=== PATIENT | female | born 1985 | race Asian ===

== ENCOUNTER 2017-04-24 04:36 | Observation (INO) | payer OTHER | END 2017-04-24 05:20 | disposition home or self-care (01) | LOC: FLD 04:36 | PROVIDERS: ADMIT Obstetrics & Gynecology; ATTEND Obstetrics & Gynecology | DX: O47.1 False labor at or after 37 completed weeks of gestation (principal); Z3A.39 39 weeks gestation of pregnancy | CPT/HCPCS: 59025; G0378 ==

== ENCOUNTER 2017-04-26 08:54 | Inpatient (IN) | payer OTHER ==
[2017-04-26] MEDS ORDERED: TERBUTALINE SULFATE 1 MG/ML VIAL IV PRN (13:10)
[2017-04-26] MEDS ORDERED: OXYTOCIN/RINGERS LACTATE 1,000 ML IV PRN (13:10)
[2017-04-26] MEDS ORDERED: EPSOM SALT 454 GM TP PRN (13:10)
[2017-04-26] MEDS ORDERED: OLIVE OIL 118 ML BTL MISC PRN (13:10)
[2017-04-26] MEDS ORDERED: LR 1,000 ML IV PRN (13:10)
[2017-04-26] MEDS ORDERED: fentanYL 4MCG/ML/BUP 0.0625% RTU 250 ML BAG EP ONE (13:20)
[2017-04-26] MEDS ORDERED: BUPIVACAINE 0.25% 30 ML SDV ONE (13:20)
[2017-04-26 13:23] LABS: % IMMATURE GRANULYOCYTES 0.7 % (0.0-1.1); ABSOLUTE IMMATURE GRANULOCYTES 0.08 10^3/uL (0.00-0.10); ADD DIFF? NO; ADD MORPH? NO; ADD SCAN? NO; ATYPICAL LYMPHOCYTE FLAG 10 (0-99); FRAGMENT RBC FLAG 0 (0-99); HEMATOCRIT 41.9 % (38.0-47.0); HEMOGLOBIN 14.1 g/dL (12.6-16.3); LEFT SHIFT FLG 0 (0-99); LIPEMIA HEMOLYSIS FLAG 80 (0-99); MEAN CELL HEMOGLOBIN CONCENTR. 33.7 g/dL (32.4-36.7); MEAN PLATELET VOLUME 9.8 fL (8.7-11.7); PLATELET CLUMPS FLAG 0 (0-99); PLATELET COUNT 209 10^3/uL (150-400); RED BLOOD CELL COUNT 4.41 10^6/uL (4.18-5.33); RED CELL DISTRIBUTION WIDTH 13.6 % (11.5-15.2)
[2017-04-26] MEDS ORDERED: LR 500 ML IV SCH (13:30)
[2017-04-26] MEDS ORDERED: PHENYLEPHRINE HCL 100 MCG/ML SYR ONE (14:00)
--- NOTE | 2017-04-26 14:15 | GHP ---
[f rep st] HISTORY AND PHYSICAL DATE OF ADMISSION: 04/26/2017 ADMITTING DIAGNOSIS: Intrauterine at 40 weeks exactly with spontaneous labor. HISTORY OF PRESENT ILLNESS: The patient is a 32-year-old, 2, para 1-0-1-0, with a last mens trual period of 07/19/2016 and an EDC of 04/26/2017, which was confirmed by an 8-week ultrasound. T he patient has had good care at [facility] since registration at 8 weeks gestatio n and has had an uncomplicated course. 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 The patient began having contractions overnight which in creased in intensity. When she was first evaluated in labor and delivery on the morning of the , her cervix was 1 cm and over a couple hours, she has now progressed to 3, 80, -1, with active stro ng labor contractions and desires an epidural for pain management. The patient is currently getting that epidural. Her bag of water is intact. status has been reassuring. PAST OBSTETRICAL HISTORY: In 2013, patient had a spontaneous at approximately 10 weeks, di d need a D and C, this was done in [place]; and this is her 2nd . GYNECOLOGICAL HISTORY: She has normal menstrual cycles. Menarche at age 14. Some irregular cycles recently and generally regular. Known last menstrual period of 07/19/2016. She does not have any history of STDs or abnormal Paps. Has only had the D and C secondary to the SAB. PAST MEDICAL HISTORY: Only significant for hepatitis B carrier. Again, she has had that from [facility], she has no current reaction. PAST SURGICAL HISTORY: She has had nose surgery for rhinitis and the D and C. ALLERGIES: She has no known drug allergies. MEDICATIONS: Current medications include vitamins and DHA. LABS: She is O positive. Antibody negative. RPR nonreactive. Rubella immune. Hepatitis positive , known. HIV negative. Cystic fibrosis, SMA and fragile X negative. Pap normal. Gonorrhea and ch lamydia normal. Verifi was negative. AFP was negative. 1-hour GTT was 106, and her GBS was negati ve. SOCIAL HISTORY: She is . She lives with her . 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 Currently, she is a tvxt-fm-fere mom. She denies tobacco, alcohol or drug use. FAMILY HISTORY: Maternal grandmother had heart disease. REVIEW OF SYSTEMS: A 10-point review of systems is negative except for obvious labor contractions a nd no leakage of fluid. OBJECTIVE: VITAL SIGNS: Today she is afebrile. Vital signs are stable. heart tones are 140 s, reactive, moderate variability, category 1. PELVIC: Current cervical exam per RN is 3, 90, -1, and she is currently getting an epidural. ASSESSMENT AND PLAN: A 32-year-old, 2, para 0-0-1-0, at 40 weeks exactly by last menstrual period (confirmed by 8-week ultrasound), in active labor. The patient is getting an epidural. When she is comfortable, I will assess her cervical dilation and offer artificial rupture of membranes t o continue active labor management. /[id number]/MODL
[2017-04-26] MEDS ORDERED: LIDOCAINE 1% 300 MG/30 ML SDV ONE (14:57)
[2017-04-26] MEDS ORDERED: OLIVE OIL 118 ML BTL ONE (14:57)
[2017-04-26] MEDS ORDERED: OXYTOCIN 10 UNIT/ML VIAL ONE (14:58)
[2017-04-26] MEDS ORDERED: MISOPROSTOL 200 MCG TAB ONE (14:58)
[2017-04-26] MEDS ORDERED: AMMONIA AROMATIC 1 EACH AMP IH ONE (14:58)
--- NOTE | 2017-04-26 15:08 | OBPROG ---
OBG Labor Progress Note Assessment/Plan: Assessment: 32 y/o @ 40 weeks in spontaneous labor with an epidural now Plan: AROM clear fluid. Continue expectant labor management. Good cervical progression. Re check in 2 hours. 04/26/17 15:06 Subjective: Pt is doing well now comfortable with her epidural and resting. Objective: 04/26/17 13:05 Patient ABO/Rh O POSITIVE 04/26/17 13:05 - SVE Dilation (cm): 6 Effacement (%): 100 Station: 0 Isaac Current Contraction Pattern: Regular (Q 2-3) FHR (bpm): 140 FHR Pattern Variability: Moderate FHR Category: 1 Membranes: AROM Amniotic Fluid Color: Clear - Procedures Non-surgical Procedures: Amniotomy Oxytocin Orders Assessment - Pre-Induction/Augmentation Assessment Gestational Age: 40 week(s) and 0 day(s) ICD10 Worksheet Patient Problems: Problems Problem Status Onset Active labor at term Acute - ICD10 Problem Qualifiers (1) Active labor at term
--- NOTE | 2017-04-26 17:36 | OBPROG ---
OBG Labor Progress Note Assessment/Plan: Assessment: 32 y/o @ 40 weeks in spontaneous labor with an epidural now Plan: Begin pushing. 04/26/17 15:06 04/26/17 17:36 Subjective: Pt is feeling more pain especially on her left side. Objective: 04/26/17 13:05 Patient ABO/Rh O POSITIVE 04/26/17 13:05 - SVE Dilation (cm): 10 Effacement (%): 100 Station: +2 Isaac Current Contraction Pattern: Regular (Q4-5) FHR (bpm): 150 FHR Pattern Variability: Moderate FHR Category: 1 Membranes: AROM Amniotic Fluid Color: Clear - Procedures Non-surgical Procedures: Amniotomy Oxytocin Orders Assessment - Pre-Induction/Augmentation Assessment Gestational Age: 40 week(s) and 0 day(s) ICD10 Worksheet Patient Problems: Problems Problem Status Onset Active labor at term Acute - ICD10 Problem Qualifiers (1) Active labor at term
[2017-04-26] MEDS ORDERED: HYDROCODONE/APAP 5/325 TAB PO PRN (19:49)
[2017-04-26] MEDS ORDERED: ACETAMINOPHEN 325 MG TAB PO PRN (19:49)
[2017-04-26] MEDS ORDERED: SIMETHICONE 80 MG TAB CHEW PO PRN (19:49)
[2017-04-26] MEDS ORDERED: HYDROCORTISONE 0.5% CREAM TP PRN (19:49)
--- NOTE | 2017-04-26 19:53 | OBDEL ---
Info Type: Vaginal GBS+: No Indications for Delivery: Spontaneous Labor Vaginal Delivery - Labor and Delivery Onset of Contractions Date: 04/26/17 Onset of Contractions Time: 06:00 Onset of Contractions Type: Spontaneous Rupture of Membranes Date: 04/26/17 Rupture of Membranes Time: 15:02 Rupture of Membranes Type: Artificial Amniotic Fluid Color: Clear Dilation Complete Date: 04/26/17 Dilation Complete Time: 17:32 Placenta Delivery Date: 04/26/17 Placenta Delivery Time: 19:31 Total Hours of Labor: 13 Non-surgical Procedures: Amniotomy Laceration: 2nd Degree Repair: 2-0, Vicryl Vaginal Sponge Count Correct: Yes Vaginal Needle Count Correct: Yes Vaginal Sweep Performed: Yes EBL: 300 Delivery Events: Nuchal Cord (loose x 1) - Medications Labor Augmentation/Induction Methods Used: None [place] Data Isaac Delivery Date: 04/26/17 Delivery Time: 19:28 SHERIF: 04/26/17 Gestational Age: 40 week(s) and 0 day(s) Sex of Infant: Male Score (1 Min): 8 Score (5 Min): 9 ICD10 Worksheet Patient Problems: Problems Problem Status Onset Active labor at term Acute - ICD10 Problem Qualifiers (1) Active labor at term
[2017-04-26] MEDS: IBUPROFEN 600 MG TAB PO PRN (20:05)
[2017-04-27] MEDS: IBUPROFEN 600 MG TAB PO PRN ×4 (01:50→19:56)
[2017-04-27 09:12] VITALS: O2SAT 96
--- NOTE | 2017-04-27 16:59 | OBPP ---
Progress Note Assessment/Plan: Assessment: well nipples intact vs wnl pain well managed ff@u scant rubra lochia voiding without difficulty perineum approximated Plan:pp day 1 expectant management 04/27/17 16:56 04/27/17 16:57 Subjective: Doing well. Pain well managed. well. Objective: 04/27/17 05:07 Patient ABO/Rh O POSITIVE 04/26/17 13:05 Temp Pulse Resp BP Pulse Ox 37.6 C 13 L 17 113/65 96 04/27/17 08:25 04/27/17 08:25 04/27/17 08:25 04/27/17 08:25 04/27/17 08:25 Uterine Position/Fundal Height: At Umbilicus Uterine Tone: Firm Physical Exam - Physical Exam General Appearance: WD/WN, alert, no apparent distress Abdomen: other (ff@u) Extremities: normal range of motion, Kaleb's sign (negative bilaterally) DTR- Lower Extremities: Knee (R): 1+, Knee (L): 1+ Skin: warm/dry Neuro/Psych: no motor/sensory deficits, normal mood/affect, oriented x 3
[2017-04-27] MEDS: DOCUSATE SODIUM 100 MG CAP PO PRN (19:56)
[2017-04-27 21:26] VITALS: RESP 18
[2017-04-28] MEDS: IBUPROFEN 600 MG TAB PO PRN ×2 (02:38→11:51)
[2017-04-28] MEDS ORDERED: IRON POLYSAC/IRON HEME 28 MG TAB PO SCH (09:00)
[2017-04-28 09:17] VITALS: BP 101/67; PULSE 106; TEMP 97.7
[2017-04-28] MEDS: DOCUSATE SODIUM 100 MG CAP PO PRN (11:51)
--- NOTE | 2017-04-28 12:27 | OBPP ---
Progress Note Assessment/Plan: Assessment: 32 y/o [id number] PPD #2 s/p doing well. Plan: D/c home today with Rx Ibuprofen. Follow-up @ [facility] 4 and 6 weeks. 04/26/17 15:06 04/26/17 17:36 04/28/17 12:27 Subjective: Pt is doing well today. She has min pain controlled with Ibuprofen. She is ambulating, voiding and has min lochia. She is breast feeding well and the baby is doing well. Objective: 04/27/17 05:07 Patient ABO/Rh O POSITIVE 04/26/17 13:05 Temp Pulse Resp BP Pulse Ox 36.5 C 106 H 18 101/67 96 04/28/17 09:16 04/28/17 09:16 04/28/17 09:16 04/28/17 09:16 04/27/17 21:25 Uterine Position/Fundal Height: Umbilicus -2 Uterine Tone: Firm Physical Exam - Physical Exam General Appearance: WD/WN, alert, no apparent distress Neck: non-tender, full range of motion, supple Respiratory: chest non-tender, lungs clear Cardiac/Chest: regular rate, rhythm Abdomen: normal bowel sounds Extremities: swelling (no), Kaleb's sign (neg)
--- NOTE | 2017-04-28 12:31 | OBGCSDC ---
General Delivery Information - General Info : 2 Para: 1 Abortions: 1 Delivery Physician/CNM: Rosalva Messer Admission Date: 04/26/17 Labs: Patient ABO/Rh O POSITIVE 04/26/17 13:05 Hct 33.9 % (38.0-47.0) L 04/27/17 05:07 Vaginal - Diagnosis Labor: Spontaneous Rupture of Membranes Type: Artificial Amniotic Fluid Color: Clear Laceration: 2nd Degree Repair: 2-0, Vicryl Delivery Events: Nuchal Cord (loose x 1) - Operations/Procedures Non-surgical Procedures: Amniotomy L&D Analgesia/Anesthesia Type: Epidural - Hospital Course Antepartum: Pt is a Hepatitis B carrier, no other pre-donte risk factors Intrapartum: spontaneous labor, epidural, AROM, pushed 1 hour, : normal pp course - Delivery Non-surgical Procedures: Amniotomy L&D Analgesia/Anesthesia Type: Epidural Data Isaac Delivery Date: 04/26/17 Delivery Time: 19:28 SHERIF: 04/26/17 Gestational Age: 40 week(s) and 2 day(s) Sex of : Male Castor Weight (gm): 3538 g Score (1 Min): 8 Score (5 Min): 9 Discharge Information - Discharge Information Discharge Medications: Ibuprofen Condition: Good Instruction/Follow Up: Six Weeks Discharge Physician/CNM: oRsalva Messer
== END 2017-04-28 13:45 | disposition home or self-care (01) | DRG 774 ==
LOC: FLD 08:54 → OBSVTOIN 14:55 → FOB 21:24
PROVIDERS: ADMIT Obstetrics & Gynecology; ATTEND Obstetrics & Gynecology
DX: O48.0 Post-term pregnancy (principal); O70.1 Second degree perineal laceration during delivery; O69.82X0 Labor and delivery complicated by other cord entanglement, without compression, not applicable or unspecified; O98.42 Viral hepatitis complicating childbirth; B18.1 Chronic viral hepatitis B without delta-agent; Z3A.40 40 weeks gestation of pregnancy; Z37.0 Single live birth
CPT/HCPCS: J2370; J2590